=== PATIENT | male | born 1995 | race Hispanic/Latino ===

== ENCOUNTER → 2020-05-25 | Outpatient (CLI) | payer OTHER | END | disposition home or self-care (01) | LOC: RAH 08:53 | DX: R13.10 Dysphagia, unspecified (principal) | CPT/HCPCS: 74220 ==

== ENCOUNTER 2020-05-26 00:44 | Emergency (ER) | payer OTHER | END 2020-05-26 02:24 | disposition home or self-care (01) | LOC: EDH 00:44 | DX: R07.0 Pain in throat (principal) | CPT/HCPCS: 99281 ==

== ENCOUNTER 2020-11-01 22:54 | Emergency (ER) | payer OTHER ==
[2020-11-01 23:30] LABS: BASOPHILS % (AUTO) 0.4 % (0.0-5.0); EOSINOPHILS % (AUTO) 0.6 % (0.0-8.0); HEMATOCRIT 45.9 % (42-54); LYMPHOCYTES % (AUTO) 29.5 % (21.0-51.0); MEAN CORPUSCULAR HEMOGLOBIN 29.6 pg (27.0-33.0); MEAN CORPUSCULAR HGB CONC 34.2 g/dL (32.0-36.0); MEAN CORPUSCULAR VOLUME 86.6 fL (79-99); MONOCYTES % (AUTO) 3.9 % (3.0-13.0); NEUTROPHILS % (AUTO) 65.4 % (40.0-77.0); PLATELET COUNT (AUTO) 160 K/uL (130-400); RED CELL DISTRIBUTION WIDTH 12.2 % (11.0-15.5); WHITE BLOOD COUNT (AUTO) 4.8 K/uL (4.8-10.8)
[2020-11-01 23:45] LABS: POTASSIUM 3.7 mmol/L (3.5-5.1)
[2020-11-01 23:49] LABS: ALBUMIN 4.7 g/dL (3.5-5.0); BILIRUBIN,TOTAL 1.2 mg/dL (0.2-1.0); TOTAL PROTEIN, SERUM 7.7 g/dL (6.0-8.3)
== END 2020-11-02 00:43 | disposition home or self-care (01) ==
LOC: EDH 22:54
DX: K21.00 Gastro-esophageal reflux disease with esophagitis, without bleeding (principal); R63.8 Other symptoms and signs concerning food and fluid intake
CPT/HCPCS: 36415; 80053; 83690; 85025

== ENCOUNTER 2020-11-07 22:37 | Emergency (ER) | payer OTHER ==
[2020-11-07] MEDS ORDERED: LACTULOSE 20 GM/30 ML UDCUP ONE (23:35)
== END 2020-11-07 23:40 | disposition home or self-care (01) ==
LOC: EDH 22:37
DX: K59.00 Constipation, unspecified (principal); R09.89 Other specified symptoms and signs involving the circulatory and respiratory systems; K21.9 Gastro-esophageal reflux disease without esophagitis

== ENCOUNTER 2020-11-16 00:43 | Emergency (ER) | payer OTHER ==
[2020-11-16] MEDS ORDERED: FAMOTIDINE 20MG TAB 20 MG TAB ONE (01:32)
[2020-11-16] MEDS ORDERED: LIDOCAINE HCL 2% VISCOUS 15 ML UDCUP ONE (01:32)
[2020-11-16] MEDS ORDERED: MAG HYDROX/AL HYDROX/SIMETH ES 30 ML SUSP UDCUP ONE (01:32)
== END 2020-11-16 01:46 | disposition home or self-care (01) ==
LOC: EDH 00:43
DX: R13.10 Dysphagia, unspecified (principal); K21.9 Gastro-esophageal reflux disease without esophagitis; K59.00 Constipation, unspecified
CPT/HCPCS: 99282

== ENCOUNTER 2020-11-16 20:10 | Emergency (ER) | payer OTHER | END 2020-11-16 21:33 | disposition home or self-care (01) | LOC: EDH 20:10 | DX: K59.00 Constipation, unspecified (principal); K21.9 Gastro-esophageal reflux disease without esophagitis | CPT/HCPCS: 99282 ==

== ENCOUNTER 2021-09-25 17:03 | Emergency (ER) | payer OTHER ==
[~2021-09-25] VITALS: Ht 165.1 cm; Wt 49.0 kg
[~2021-09-25 17:03] MED LIST: D-ME1POW16 PO; NIRM1TAB PO
[2021-09-25 17:07] VITALS: BP 121/74
[2021-09-25] MEDS ORDERED: ACETAMINOPHEN 500 MG TABLET PO ONE (19:00)
== END 2021-09-25 18:47 | disposition home or self-care (01) ==
LOC: EDH 17:03
DX: J02.9 Acute pharyngitis, unspecified (principal)
CPT/HCPCS: 87880

== ENCOUNTER 2021-10-18 11:10 | Emergency (ER) | payer OTHER ==
[~2021-10-18] VITALS: Ht 162.6 cm; Wt 47.6 kg
[2021-10-18 11:14] VITALS: BP 121/66
[2021-10-18] MEDS: ACETAMINOPHEN 500 MG TABLET PO SCH ×2 (11:48→14:19)
[2021-10-18] MEDS ORDERED: AZIT1PAC7 PO (13:52)
[2021-10-18] MEDS ORDERED: D-ME118S47 PO (13:52)
[2021-10-18] MEDS ORDERED: IBUP-2070 PO (13:52)
[2021-10-18] MEDS ORDERED: AZITHROMYCIN 250 MG TABLET PO ONE (14:00)
== END 2021-10-18 14:22 | disposition home or self-care (01) ==
LOC: EDH 11:10
DX: J22 Unspecified acute lower respiratory infection (principal); R05.9 Cough, unspecified; Z20.828 Contact with and (suspected) exposure to other viral communicable diseases
CPT/HCPCS: 87635; 87804 ×2; 87880; 99284; C9803

== ENCOUNTER 2022-12-14 22:37 | Emergency (ER) | payer BC, OTHER ==
[~2022-12-14] VITALS: Ht 162.6 cm; Wt 50.8 kg
[~2022-12-14 22:37] MED LIST changes: +AZIT1PAC7 PO; +D-ME118S47 PO; +IBUP-2070 PO
[2022-12-14 22:47] VITALS: BP 130/60
[2022-12-14] MEDS ORDERED: PRED20TA3 PO ×2 (23:17→23:20)
[2022-12-14] MEDS ORDERED: PREDNISONE 20 MG TABLET PO ONE (23:30)
== END 2022-12-14 23:41 | disposition home or self-care (01) ==
LOC: EDH 22:37
DX: J02.8 Acute pharyngitis due to other specified organisms (principal); Z20.822 Contact with and (suspected) exposure to COVID-19
CPT/HCPCS: 99283; 87635; 87880; 87804 ×2; C9803

== ENCOUNTER 2023-06-05 13:07 | Emergency (ER) | payer BC ==
[~2023-06-05] VITALS: Ht 162.6 cm; Wt 49.9 kg
[~2023-06-05 13:07] MED LIST changes: +BROM118S48 PO; -D-ME118S47 PO; +PRED20TA3 PO
[2023-06-05 13:11] VITALS: BP 126/86; PULSE 122; RESP 16; O2SAT 97
[2023-06-05 13:35] LABS: RAPID GROUP A STREP negative (NEGATIVE)
[2023-06-05 13:40] LABS: SARS-CoV-2, RNA, NAAT POSITIVE SARS CoV-2 (NEGATIVE)
[2023-06-05 13:45] LABS: INFLUENZA TYPE A Negative For Type A (NEGATIVE); INFLUENZA TYPE B Negative For Type B (NEGATIVE)
== END 2023-06-05 15:37 | disposition home or self-care (01) ==
LOC: EDH 13:07
DX: U07.1 COVID-19 (principal); Z79.899 Other long term (current) drug therapy
CPT/HCPCS: 99283; 87635; 87880; 87804 ×2; C9803

== ENCOUNTER 2023-08-24 16:50 | Emergency (ER) | payer BC ==
[~2023-08-24] VITALS: Ht 162.6 cm; Wt 49.9 kg
[2023-08-24 17:26] VITALS: BP 138/97; PULSE 92; RESP 18; O2SAT 99
[2023-08-24 17:57] LABS: RAPID GROUP A STREP negative (NEGATIVE)
[2023-08-24 18:06] LABS: SARS-CoV-2, RNA, NAAT NEGATIVE SARS CoV-2 (NEGATIVE)
[2023-08-24 18:08] LABS: INFLUENZA TYPE A Negative For Type A (NEGATIVE); INFLUENZA TYPE B Negative For Type B (NEGATIVE)
[2023-08-24] MEDS ORDERED: BROM118S48 PO (21:29)
== END 2023-08-24 22:16 | disposition home or self-care (01) ==
LOC: EDH 16:50
DX: J06.9 Acute upper respiratory infection, unspecified (principal); Z20.822 Contact with and (suspected) exposure to COVID-19; Z79.899 Other long term (current) drug therapy
CPT/HCPCS: 87635; 87804; 87880

== ENCOUNTER 2023-09-20 20:02 | Emergency (ER) | payer BC ==
[~2023-09-20] VITALS: Ht 162.6 cm; Wt 49.0 kg
[~2023-09-20 20:02] MED LIST changes: -BROM118S48 PO; +D-ME118S47 PO
[2023-09-20 21:08] LABS: RAPID GROUP A STREP negative (NEGATIVE)
[2023-09-20 21:22] LABS: INFLUENZA TYPE A Negative For Type A (NEGATIVE); INFLUENZA TYPE B Negative For Type B (NEGATIVE)
[2023-09-20 21:30] LABS: COVID19 (SARS ANTIGEN RAPID) PRESUMPTIVE NEGATIVE (NEGATIVE)
[2023-09-20] MEDS: ACETAMINOPHEN 500 MG TABLET PO ONE (22:19)
[2023-09-20] MEDS: KETOROLAC 60 MG VIAL (30MG/ML) IM ONE ×2 (22:20→22:47)
[2023-09-20] MEDS ORDERED: ONDA4TAB10 PO (22:58)
[2023-09-20 23:06] VITALS: TEMP 99.9
[2023-09-20 23:07] VITALS: BP 138/67; PULSE 102; RESP 20; O2SAT 100
== END 2023-09-20 23:12 | disposition home or self-care (01) ==
LOC: EDH 20:02
DX: B34.9 Viral infection, unspecified (principal); J02.8 Acute pharyngitis due to other specified organisms; R11.0 Nausea; Z79.899 Other long term (current) drug therapy; Z20.822 Contact with and (suspected) exposure to COVID-19
CPT/HCPCS: 99284; 87426; 87880; 87804 ×2; 96372 ×2; J1885 ×2

== ENCOUNTER 2024-07-27 10:32 | Emergency (ER) | payer BC ==
[~2024-07-27] VITALS: Ht 162.6 cm; Wt 50.9 kg
[~2024-07-27 10:32] MED LIST changes: +BROM118S48 PO; -D-ME118S47 PO; +ONDA-243 PO
--- NOTE | 2024-07-27 10:38 | ERN ---
ED Note History of Present Illness Stated Complaint: COUGH, CONGESTION, FEVER Chief Complaint: Cough Time Seen by MD: 10:34 Dictation: PATIENT IS A 28-YEAR-OLD MALE HERE WITH COMPLAINTS OF FLU-LIKE SYMPTOMS TO INCLUDE FRONTAL HEADACHE, CLEAR RHINITIS, MILD SORE THROAT AND DRY COUGH FOR THE LAST 2-3 DAYS. NO NAUSEA VOMITING NO DIARRHEA. STATES NO LOSS OF TASTE OR SMELL. 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 BOLAÑOS IS A HOWEVER HAS NOT BEEN OUT TO SEE HIM. Allergies: Coded Allergies: No Known Allergies (Unverified Allergy, Unknown, 11/08/20) Home Meds Active Scripts Benzonatate (Tessalon Perles) 100 Mg Cap, 100 MG PO TID for cough, #30 CAP 0 Refills Prov:ROBLES CAMPOS BLOWER INSTALLER 07/27/24 Ondansetron (Ondansetron Odt) 4 Mg Tab.rapdis, 4 MG PO Q6HPRN PRN for nausea, #15 TAB 0 Refills Prov:EVELINA YU BLOWER INSTALLER 09/20/23 Prednisone (Prednisone) 20 Mg Tablet, 2 TAB PO DAILY for 5 Days, #10 TAB 0 Refills Prov:MUSA MAYBERRY SALES PROMOTION COORDINATOR 08/24/23 D-Methorphan Hb/P-Epd HCl/Bpm (Bromfed Dm Cough Syrup) 2 Mg-30 Mg-10 Mg/5 Ml Syrup, 5 ML PO Q6HPRN PRN for COUGH/COLD SYMPTOMS, #240 ML Prov:MUSA MAYBERRY SALES PROMOTION COORDINATOR 08/24/23 Prednisone (Prednisone) 20 Mg Tablet, 2 TAB PO DAILY for 5 Days, #10 TAB 0 Refills TAKE 1 TAB BY MOUTH THREE TIMES PER DAY X3 DAYS, THEN TAKE 1 TAB BY MOUTH TWICE A DAY X2 DAYS, THEN TAKE 1 TAB BY MOUTH ONCE A DAY X1 DAY. Prov:MUSA MAYBERRY SALES PROMOTION COORDINATOR 12/14/22 Azithromycin (Azithromycin) 1 Gm Packet, 1 GM PO AD for 5 Days, #1 PKT Prov:KARTHIK BALL MD 10/18/21 D-Methorphan Hb/P-Epd HCl/Bpm (Bromfed Dm Cough Syrup) 118 Ml Syrup, 10 ML PO QID, #120 ML Prov:KARTHIK BALL MD 10/18/21 Ibuprofen (Ibuprofen) 600 Mg Tablet, 600 MG PO Q6H PRN for PAIN, #30 TAB Prov:KARTHIK BALL MD 10/18/21 D-Methorphan/PE/Acetaminophen (Theraflu Ms Severe Cold Pckt) 1 Each Powd.pack, 1 EACH PO QIDP, #20 PACK Prov:WASHBURNTOBI PA 07/19/21 Nirmatrelvir/Ritonavir (Paxlovid Co-Pack (Eua)) 1 Each Tablet, 1 EACH PO BID, #10 TAB Prov:MADDISONTOBI PA 07/19/21 Past Medical History Past Medical History: No Pertinent History, Asthma Surgical History: None Family History: Negative Social History: Negative, Lives with family RN Note Reviewed/Agreed w/PFSH: Yes Review of System Dictation CONSTITUTIONAL: NEGATIVE EXCEPT FOR HPI FEVER HEAD/FACE: NEGATIVE EXCEPT FOR HPI EENT: NEGATIVE EXCEPT FOR HPI CLEAR RHINITIS WITH MILD RESPIRATORY: NEGATIVE EXCEPT FOR HPI SOR THROAT DRY COUGH GASTROINTESTINAL/ABDOMINAL: NEGATIVE EXCEPT FOR HPI GENITOURINARY: NEGATIVE EXCEPT FOR HPI MUSCULOSKELETAL: NEGATIVE EXCEPT FOR HPI INTEGUMENTARY: NEGATIVE EXCEPT FOR HPI NEUROLOGICAL/PSYCH: NEGATIVE EXCEPT FOR HPI HEMATOLOGIC/LYMPHATIC: NEGATIVE EXCEPT FOR HPI ALL SYSTEMS NEGATIVE, EXCEPT NOTED ABOVE. 13 POINT REVIEW OF SYSTEMS ASSESSED AND ALL NEGATIVE EXCEPT FOR ABOVE. Initial Vital Sign VS Vital Signs Date Time Temp Pulse Resp B/P (MAP) Pulse Ox O2 Delivery O2 Flow Rate FiO2 07/27/24 10:32 99.1 118 16 178/99 99 Room Air 0 07/27/24 12:50 21 Physical Exam Dictation VITAL SIGNS REVIEWED GENERAL APPEARANCE: ALERT, ORIENTED X 3, NO ACUTE DISTRESS, WELL DEVELOPED, NOURISHED. HEAD AND FACE: NON-TRAUMATIC. EYES: PERRL, PINK CONJUNCTIVAS, EYELID NO TRAUMA, ANTERIOR CHAMBER WITH ARCUS SENILIS. EARS: PINNAS INTACT AND NO SIGNS OF TRAUMA OR ERYTHEMA EAR CANALS CLEAR AND NO DISCHARGE TM NO ERYTHEMA NOSE: CLEAR DISCHARGE, NO BLEEDING. OROPHARYNX: MOUTH NORMAL, TONGUE PINK, PHARYNX CLEAR,NO ERYTHEMA, TONSILS NO EXUDATES, NO ABSCESSES NOTED, MUCOUS MEMBRANE MOIST NECK: SUPPLE, NON-TENDER, NO THYROMEGALY, NO MASSES, NO JVD, NO BRUITS BREAST:DEFERRED CHEST:NO TENDERNESS, NO CREPITUS, NO PARADOXICAL MOVEMENT, NO RETRACTIONS LUNGS:CLEAR, WELL-VENTILATED, SYMMETRIC, NO RALES, NO WHEEZING, NO RHONCHI, NO STRIDOR, GOOD BREATH SOUNDS BILATERALLY HEART: REGULAR RATE, REGULAR RHYTHM, NO MURMUR, NO GALLOPS VASCULAR: NO PERIPHERAL EDEMA, ABDOMEN: SOFT, POSITIVE BOWEL SOUNDS, NONDISTENDED, NO GUARDING, NONTENDER, NO REBOUND, NO MASSES NO HEPATOMEGALY, NO SPLENOMEGALY, NO VERMA'S SIGN, NO HERNIAS. RECTAL: DEFERRED GENITAL: DEFERRED NEUROLOGICAL: NORMAL SPEECH, MOTOR FUNCTION INTACT, SENSORY FUNCTION INTACT MUSCULOSKELETAL: NECK NONTENDER, FULL RANGE OF MOTION, BACK NONTENDER, FULL RANGE OF MOTION, EXTREMITIES: NONTENDER, FULL RANGE OF MOTION SKIN: COLOR PINK, DRY, NO TURGOR, NO RASH, NO LACERATIONS, NO ABRASIONS, NO CONTUSIONS. LYMPHATIC: DEFERRED Results (Laboratory/Radiology) Laboratory/Radiology Laboratory Tests Test 07/27/24 10:48 Influenza Type A Antigen Negative For Type A Influenza Type B Antigen Negative For Type B SARS-CoV-2 Antigen (Rapid) PRESUMPTIVE NEGATIVE Group A Streptococcus Rapid negative (NEGATIVE) Labs Reviewed?: Yes ED Course ED Course Orders Procedure Category Date Status Time Covid19 (Sars Antigen LAB 07/27/24 Complete Rapid) 10:36 Rapid (Group A Strep) LAB 07/27/24 Complete 10:36 Influenza Type A & B, LAB 07/27/24 Complete Rapid 10:36 Vital Signs Date Time Temp Pulse Resp B/P (MAP) Pulse Ox O2 Delivery O2 Flow Rate FiO2 07/27/24 12:50 98.8 92 16 160/84 99 Room Air* 0 21 07/27/24 10:32 99.1 118 16 178/99 99 Room Air 0 1150/PATIENT IS DISCHARGED HOME WITH VIRAL URI WITH COUGH AFEBRILE AT THIS TIME DISCHARGED AND TOLD TO SEE HIS PRIMARY CARE DOCTOR Medical Decision Making MDM MEDICAL DISCHARGE MAKING BASED ON SWABS FOR FLU COVID AND STREP. PATIENT DISCHARGED HOME WITH VIRAL URI WITH COUGH HE WILL BE PRESCRIBED TESSALON AND TOLD TO SEE HIS PRIMARY CARE DOCTOR MDM: Differential diagnosis: Viral syndrome, influenza, URI Risk of complication and/or morbidity or mortality of patient management: None Medications-Per medication reconciliation Need for hospitalization: Patient does not meet criteria for hospitalization. Need for emergency major/minor surgery: No There are no social concerns with this patient. Prescription drug management Prescriptions will include symptomatic care I independently interpreted the test that were performed, results were reviewed by me and considered findings on radiology if ordered. DX & DISP Disposition: Discharge Departure Impression: Primary Impression: Viral URI with cough Condition: Stable Scripts Benzonatate (Tessalon Perles) 100 Mg Cap 100 MG PO TID for cough, #30 CAP 0 Refills Prov: ROBLES CAMPOS BLOWER INSTALLER 07/27/24 Additional Instructions: FOLLOW-UP WITH PRIMARY CARE PROVIDER IN 1 TO 2 DAYS. TAKE MEDICATIONS DIRECTED HERE IN THE EMERGENCY ROOM. OKAY TO CONTINUE HOME MEDICATIONS UNLESS OTHERWISE DISCUSSED DURING YOUR VISIT IN THE EMERGENCY ROOM TODAY. RETURN TO YOUR NEAREST EMERGENCY ROOM IF SYMPTOMS WORSEN OR IF THERE IS NO IMPROVEMENT. CALL 911 IF YOU NEED IMMEDIATE ASSISTANCE. TAKE TYLENOL OR MOTRIN [id number] NEEDED AND IF NO CONTRAINDICATIONS ARE PRESENT. INCREASE ORAL HYDRATION. A WOUND CULTURE OR URINE CULTURE WAS ORDERED HERE IN THE EMERGENCY ROOM DEPARTMENT PLEASE FOLLOW-UP WITH PRIMARY CARE PROVIDER AND ADVISE THEM TO GET REPEAT PORTS FROM OUR FACILITY. IF YOU HAD ANY GRETEL WRAP/SPLINTS THAT WERE APPLIED HERE, PLEASE DO NOT REMOVE THEM UNTIL YOU SEE YOUR PRIMARY CARE OR SPECIALTY. TAKE TESSALON NEEDED FOR COUGH. INCREASE YOUR FLUID INTAKE. NO WORK UNTIL CLEARED BY YOUR PRIMARY CARE DOCTOR. Referrals: CHARLES NORTH MD (PCP) Time of Disposition: 11:52 I have reviewed the case, and I agree with, Diagnosis and Plan I performed the substantive portion of the visit. I have reviewed and personally made and approve the management plan that is documented in the notes by myself or the JASEN. I acknowledge full responsibility for the patient's management plan. ROBLES CAMPOS NP Jul 27, 2024 10:38 OLIMPIA FITZGERALD MD Jul 28, 2024 10:36
[2024-07-27 11:13] LABS: RAPID GROUP A STREP negative (NEGATIVE)
[2024-07-27 11:23] LABS: INFLUENZA TYPE A Negative For Type A (NEGATIVE); INFLUENZA TYPE B Negative For Type B (NEGATIVE)
[2024-07-27 11:24] LABS: COVID19 (SARS ANTIGEN RAPID) PRESUMPTIVE NEGATIVE (NEGATIVE)
[2024-07-27] MEDS ORDERED: BENZ-39 PO (11:53)
[2024-07-27 12:50] VITALS: BP 160/84; PULSE 92; RESP 16; TEMP 98.8; O2SAT 99
== END 2024-07-27 12:55 | disposition home or self-care (01) ==
LOC: EDH 10:32
DX: J06.9 Acute upper respiratory infection, unspecified (principal); B97.89 Other viral agents as the cause of diseases classified elsewhere; J45.909 Unspecified asthma, uncomplicated; Z20.822 Contact with and (suspected) exposure to COVID-19; Z79.52 Long term (current) use of systemic steroids
CPT/HCPCS: 87426; 87804; 87880; 99283

== ENCOUNTER 2025-01-07 18:55 | Emergency (ER) | payer BC ==
[~2025-01-07] VITALS: Ht 162.6 cm; Wt 50.8 kg
[~2025-01-07 18:55] MED LIST changes: +BENZ-39 PO
[2025-01-07 19:49] LABS: RAPID GROUP A STREP negative (NEGATIVE)
[2025-01-07 19:59] LABS: COVID19 (SARS ANTIGEN RAPID) PRESUMPTIVE NEGATIVE (NEGATIVE); INFLUENZA TYPE A Negative For Type A (NEGATIVE); INFLUENZA TYPE B Negative For Type B (NEGATIVE)
--- NOTE | 2025-01-07 20:21 | ERN ---
General Chief Complaint: Flu Symptoms Stated Complaint: FEVER Time Seen by MD: 18:57 Time Seen by Midlevel: 18:57 Source: patient History of Present Illness Initial Comments 29-year-old male who presents to the emergency department due to flu-like symptoms onset yesterday. Patient reports fevers, congestion but denies any chest pain, difficulty breathing, cough, headache or further associated symptoms. Has been taking Tylenol at home for fever. Patient reports a history of anxiety. Allergies: Coded Allergies: No Known Allergies (Unverified Allergy, Unknown, 11/08/20) Home Meds Active Scripts Benzonatate (Tessalon Perles) 100 Mg Cap, 100 MG PO TID for cough, #30 CAP 0 Refills Prov:ROBLES CAMPOS SWEATBAND DRUMMER 07/27/24 Ondansetron (Ondansetron Odt) 4 Mg Tab.rapdis, 4 MG PO Q6HPRN PRN for nausea, #15 TAB 0 Refills Prov:EVELINA YU SWEATBAND DRUMMER 09/20/23 Prednisone (Prednisone) 20 Mg Tablet, 2 TAB PO DAILY for 5 Days, #10 TAB 0 Refills Prov:MUSA MAYBERRY RETAIL STORE ASSOCIATE 08/24/23 D-Methorphan Hb/P-Epd HCl/Bpm (Bromfed Dm Cough Syrup) 2 Mg-30 Mg-10 Mg/5 Ml Syrup, 5 ML PO Q6HPRN PRN for COUGH/COLD SYMPTOMS, #240 ML Prov:MUSA MAYBERRY RETAIL STORE ASSOCIATE 08/24/23 Prednisone (Prednisone) 20 Mg Tablet, 2 TAB PO DAILY for 5 Days, #10 TAB 0 Refills TAKE 1 TAB BY MOUTH THREE TIMES PER DAY X3 DAYS, THEN TAKE 1 TAB BY MOUTH TWICE A DAY X2 DAYS, THEN TAKE 1 TAB BY MOUTH ONCE A DAY X1 DAY. Prov:MUSA MAYBERRY RETAIL STORE ASSOCIATE 12/14/22 Azithromycin (Azithromycin) 1 Gm Packet, 1 GM PO AD for 5 Days, #1 PKT Prov:KARTHIK BLAL MD 10/18/21 D-Methorphan Hb/P-Epd HCl/Bpm (Bromfed Dm Cough Syrup) 118 Ml Syrup, 10 ML PO Q ID, #120 ML Prov:KARTHIK BALL MD 10/18/21 Ibuprofen (Ibuprofen) 600 Mg Tablet, 600 MG PO Q6H PRN for PAIN, #30 TAB Prov:KARTHIK BALL MD 10/18/21 D-Methorphan/PE/Acetaminophen (Theraflu Ms Severe Cold Pckt) 1 Each Powd.pack, 1 EACH PO QIDP, #20 PACK Prov:TOBI WASHBURN 07/19/21 Nirmatrelvir/Ritonavir (Paxlovid Co-Pack (Eua)) 1 Each Tablet, 1 EACH PO BID, #10 TAB Prov:TOBI WASHBURN 07/19/21 Past Medical History Past Medical History: No Pertinent History Past Surgical History: None Family History Family History: Negative Social History Social History: Negative, Lives with family ROS Dictation Constitutional: Positive for fever Negative for chills, and weight loss Eyes: Negative for injury, pain,redness, and discharge ENT: Positive for congestion Negative for injury,pain or swelling Cardiovascular: Negative for chest pain, palpitations, and edema Respiratory: Negative for shortness of breath, cough, and wheezing, Abdomen/GI: Negative for abdominal pain, nausea, vomiting, diarrhea, and constipation Back: Negative for injury and pain : Negative for painful urination, bleeding or discharge MS/Extremity: Negative for injury and deformity Skin: Negative for rash, and discoloration Neuro: Negative for headache, weakness, numbness, tingling, and seizure Psych: Negative for suicide ideation, homicidal ideation, and hallucinations Physical Exam Physical Exam Dictation General: awake, alert, no acute distress Head/Face: Normocephalic, atraumatic Eyes: PERRL, EOMI, normal conjunctiva ENT: oral cavity clear, TMs clear, oral mucosa moist Neck: Supple, normal range of motion Cardiovascular: RRR, normal S1/S2 Respiratory: CTAB, no respiratory distress, no rales or wheezes Abdomen: Soft, non-tender, non-distended, no guarding or rebound. Skin: Warm, dry, normal turgor, no rash MS/Extremity: Pulses equal, no cyanosis, neurovascular intact, FROM Neuro: COAx4, GCS 15, strength 5/5, CN 2-12 intact, normal cerebellar exam, normal gait Psych: Normal behavior, mood, and affect normal Results Laboratory and Microbiology Lab and Micro Result Laboratory Tests Test 01/07/25 19:28 Influenza Type A Antigen Negative For Type A Influenza Type B Antigen Negative For Type B SARS-CoV-2 Antigen (Rapid) PRESUMPTIVE NEGATIVE Group A Streptococcus Rapid negative (NEGATIVE) Labs Reviewed?: Yes MDM MDM: Differential diagnosis: Influenza, viral illness, strep, COVID Rationale: 29-year-old male who presents to the emergency department due to flu- like symptoms onset yesterday. Patient reports fevers, congestion but denies any chest pain, difficulty breathing, cough, headache or further associated symptoms. Has been taking Tylenol at home for fever. Patient reports a history of anxiety. SARs, influenza, strep negative. Patient tachycardic bit states he gets very nervous. Continues to deny any chest pain, shortness of breath or further associated symptoms. Patient was educated on findings and diagnosis. Advised to follow up with PCP. Return to the emergency department for any worsening symptoms. Patient verbalized understanding. Patient stable for discharge. There are no social concerns with this patient. I independently interpreted the test that were performed, results were reviewed by me and considered findings on radiology if ordered. Medical management and examination interpretation discussions were had by me with other qualified healthcare professionals as indicated for the patient's care. ED Course Orders Procedure Category Date Status Time Covid19 (Sars Antigen LAB 01/07/25 Complete Rapid) 19:14 Influenza Type A & B, LAB 01/07/25 Complete Rapid 19:14 Rapid (Group A Strep) LAB 01/07/25 Complete 19:14 Vital Signs Date Time Temp Pulse Resp B/P (MAP) Pulse Ox O2 Delivery O2 Flow Rate FiO2 01/07/25 19:19 99.1 136 18 148/98 99 Room Air DX & DISP Disposition: Discharge Departure Impression: Primary Impression: Viral illness Condition: Stable Scripts Fluticasone Propionate (Flonase Nasal [place]) 50 Mcg/Actuation [place] 2 SPRAY NS DAILY for 7 Days, #16 GM 0 Refills Prov: LUTHER EVERETT 01/07/25 Additional Instructions: Discharge home. Rest. Follow up with primary care in 24 hours. Return to the ER for any acute changes or worsening symptoms. If any medications were prescribed take as directed. Okay to continue home medications unless otherwise discussed during your visit in the emergency room today. Patient was also advised to follow-up with primary care physician in 1 to 2 days for continued monitoring. Referrals: CHARLES NORTH MD (PCP) I performed the substantive portion of the visit. I have reviewed and personally made and approve the management plan that is documented in the notes by myself or the JASEN. I acknowledge full responsibility for the patient's management plan. LUTHER EVERETT Jan 07, 2025 20:21
[2025-01-07 20:26] VITALS: BP 149/94; PULSE 105; RESP 18; TEMP 98.7; O2SAT 98
[2025-01-07] MEDS ORDERED: FLUT16H NS (20:36)
== END 2025-01-07 20:37 | disposition home or self-care (01) ==
LOC: EDH 18:55
DX: B34.9 Viral infection, unspecified (principal); Z79.52 Long term (current) use of systemic steroids; Z79.899 Other long term (current) drug therapy; Z20.822 Contact with and (suspected) exposure to COVID-19
CPT/HCPCS: 87426; 87804; 87880; 99283

== ENCOUNTER 2025-02-01 23:24 | Emergency (ER) | payer BC ==
[~2025-02-01] VITALS: Ht 162.6 cm; Wt 49.9 kg
[~2025-02-01 23:24] MED LIST changes: +FLUT16H NS; +IBUP-1492 PO; -IBUP-2070 PO
--- NOTE | 2025-02-01 23:47 | ERN ---
ED Note History of Present Illness Stated Complaint: C/O WANTS TO BE SURE O2 LEVEL IS GOOD Chief Complaint: Other Problems Time Seen by MD: 23:34 Time Seen by Midlevel: 23:34 Dictation: The patient is a 29-year-old male with no past medical history who presents to the emergency department for evaluation of oxygen level. Patient reports that he was at his work and was afraid that he accidentally drank something that he was allergic to although he was not sure. Patient otherwise denies any shortness of breath, denies any rash or itchiness. Patient reports he just wanted to make sure his oxygen saturation was okay. Allergies: Coded Allergies: No Known Allergies (Unverified Allergy, Unknown, 11/08/20) Home Meds Active Scripts Fluticasone Propionate (Flonase Nasal [place]) 50 Mcg/Actuation [place], 2 SPRAY NS DAILY for 7 Days, #16 GM 0 Refills Prov:LUTHER EVERETT PA 01/07/25 Benzonatate (Tessalon Perles) 100 Mg Cap, 100 MG PO TID for cough, #30 CAP 0 Refills Prov:ROBLES CAMPOS SOFTWARE TESTING SPECIALIST 07/27/24 Ondansetron (Ondansetron Odt) 4 Mg Tab.rapdis, 4 MG PO Q6HPRN PRN for nausea, #15 TAB 0 Refills Prov:EVELINA YU SOFTWARE TESTING SPECIALIST 09/20/23 Prednisone (Prednisone) 20 Mg Tablet, 2 TAB PO DAILY for 5 Days, #10 TAB 0 Refills Prov:MUSA MAYBERRY BODY DESIGNER 08/24/23 D-Methorphan Hb/P-Epd HCl/Bpm (Bromfed Dm Cough Syrup) 2 Mg-30 Mg-10 Mg/5 Ml Syrup, 5 ML PO Q6HPRN PRN for COUGH/COLD SYMPTOMS, #240 ML Prov:MUSA MAYBERRY BODY DESIGNER 08/24/23 Prednisone (Prednisone) 20 Mg Tablet, 2 TAB PO DAILY for 5 Days, #10 TAB 0 Ref ills TAKE 1 TAB BY MOUTH THREE TIMES PER DAY X3 DAYS, THEN TAKE 1 TAB BY MOUTH TWICE A DAY X2 DAYS, THEN TAKE 1 TAB BY MOUTH ONCE A DAY X1 DAY. Prov:MUSA MAYBERRY BODY DESIGNER 12/14/22 Azithromycin (Azithromycin) 1 Gm Packet, 1 GM PO AD for 5 Days, #1 PKT Prov:KARTHIK BALL MD 10/18/21 D-Methorphan Hb/P-Epd HCl/Bpm (Bromfed Dm Cough Syrup) 118 Ml Syrup, 10 ML PO QID, #120 ML Prov:KARTHIK BALL MD 10/18/21 Ibuprofen (Ibuprofen) 600 Mg Tablet, 600 MG PO Q6H PRN for PAIN, #30 TAB Prov:KARTHIK BALL MD 10/18/21 D-Methorphan/PE/Acetaminophen (Theraflu Ms Severe Cold Pckt) 1 Each Powd.pack, 1 EACH PO QIDP, #20 PACK Prov:TOBI WASHBURN 07/19/21 Nirmatrelvir/Ritonavir (Paxlovid Co-Pack (Eua)) 1 Each Tablet, 1 EACH PO BID, #10 TAB Prov:TOBI WASHBURN 07/19/21 Past Medical History Past Medical History: No Pertinent History Surgical History: None Family History: Negative Social History: Negative, Lives with family RN Note Reviewed/Agreed w/PFSH: Yes Review of System Dictation Constitutional: Negative for fever,chills, and weight loss Eyes: Negative for injury, pain,redness, and discharge ENT: Negative for injury,pain or swelling Cardiovascular: Negative for chest pain, palpitations, and edema Respiratory: Negative for shortness of breath, cough, and wheezing, Abdomen/GI: Negative for abdominal pain, nausea, vomiting, diarrhea, and constipation Back: Negative for injury and pain : Negative for injury, bleeding and discharge MS/Extremity: Negative for injury and deformity Skin: Negative for rash, and discoloration Neuro: Negative for headache, weakness, numbness, tingling, and seizure Psych: Negative for suicide ideation, homicidal ideation, and hallucinations Initial Vital Sign VS Vital Signs Date Time Temp Pulse Resp B/P (MAP) Pulse Ox O2 Delivery O2 Flow Rate FiO2 02/01/25 23:25 97.9 89 18 146/82 99 Room Air 02/01/25 23:38 0 21 Physical Exam Dictation Vital Signs reviewed General Appearance: Alert, oriented x 3, no acute distress, well developed, nourished. Head and Face: non-traumatic. Eyes: PERRL, pink conjunctivas, eyelid no trauma, anterior chamber with arcus senilis. Ears: Pinnas intact and no signs of trauma or erythema ear canals clear and no discharge TM no erythema Nose: No discharge, no bleeding. Oropharynx: Mouth normal, tongue pink. pharynx clear,no erythema, tonsils no exudates, no abscesses noted, mucous membrane moist Neck: Supple, non-tender, no thyromegaly, no masses, no JVD, no bruits Breast:Deferred Chest:No tenderness, no crepitus, no paradoxical movement, no retractions Lungs:Clear, well-ventilated, symmetric, no rales, no wheezing, no rhonchi, no stridor, good breath sounds bilaterally Heart: Regular rate, regular rhythm, no murmur, no gallops Vascular: no peripheral edema, Abdomen: Soft, positive bowel sounds, nondistended, no guarding, nontender, no rebound, no masses no hepatomegaly, no splenomegaly, no De Leon's sign, no hernias. Rectal: Deferred Genital: Deferred Neurological: Normal speech, motor function intact, sensory function intact Musculoskeletal: Neck nontender, full range of motion, back nontender, full range of motion, Extremities: nontender, full range of motion Skin: Color pink, dry, no turgor, no rash, no lacerations, no abrasions, no contusions. Lymphatic: Deferred Results (Laboratory/Radiology) Labs Reviewed?: Yes ED Course ED Course Vital Signs Date Time Temp Pulse Resp B/P (MAP) Pulse Ox O2 Delivery O2 Flow Rate FiO2 02/01/25 23:38 97.9 85 18 141/78 99 Room Air* 0 21 02/01/25 23:25 97.9 89 18 146/82 99 Room Air Medical Decision Making MDM The patient is a 29-year-old male with no past medical history who presents to the emergency department for evaluation of oxygen level. Patient reports that he was at his work and was afraid that he accidentally drank something that he was allergic to although he was not sure. Patient otherwise denies any shortness of breath, denies any rash or itchiness. Patient reports he just wanted to make sure his oxygen saturation was okay. Patient in no acute distress, clear lung sounds, no rash or swelling to tongue, stable vital signs. Patient isn't sure if he came in contact with something that he was allergic to but otherwise has no symptoms. Patient will be discharged to follow up with PCP. Differential diagnosis: Allergic reaction, anxiety, wellness exam Need for hospitalization: Patient does not meet criteria for hospitalization. There are no social concerns with this patient. DX & DISP Disposition: Discharge Departure Impression: Primary Impression: Wellness examination Condition: Stable Additional Instructions: Please follow up with your primary doctor in 1-2 days. If anything worsens please return to ER. FOLLOW-UP WITH PRIMARY CARE PROVIDER IN 1 TO 2 DAYS. TAKE MEDICATIONS D IRECTED HERE IN THE EMERGENCY ROOM. OKAY TO CONTINUE HOME MEDICATIONS UNLESS OTHERWISE DISCUSSED DURING YOUR VISIT IN THE EMERGENCY ROOM TODAY. RETURN TO YOUR NEAREST EMERGENCY ROOM IF SYMPTOMS WORSEN OR IF THERE IS NO IMPROVEMENT. CALL 911 IF YOU NEED IMMEDIATE ASSISTANCE. TAKE TYLENOL [id number] NEEDED AND IF NO CONTRAINDICATIONS ARE PRESENT. INCREASE ORAL HYDRATION. A WOUND CULTURE OR URINE CULTURE WAS ORDERED HERE IN THE EMERGENCY ROOM DEPARTMENT PLEASE FOLLOW-UP WITH PRIMARY CARE PROVIDER AND ADVISE THEM TO GET REPEAT PORTS FROM OUR FACILITY. IF YOU HAD ANY GRETEL WRAP/SPLINTS THAT WERE APPLIED HERE, PLEASE DO NOT REMOVE THEM UNTIL YOU SEE YOUR PRIMARY CARE OR SPECIALTY. Referrals: CHARLES NORTH MD (PCP) Time of Disposition: 23:46 I have reviewed the case, and I agree with, Diagnosis and Plan CELIA SOLOMONP Feb 01, 2025 23:47
[2025-02-02 00:14] VITALS: BP 135/71; PULSE 78; RESP 18; TEMP 97.5; O2SAT 99
== END 2025-02-02 00:15 | disposition home or self-care (01) ==
LOC: EDH 23:24
DX: Z00.00 Encounter for general adult medical examination without abnormal findings (principal); Z79.52 Long term (current) use of systemic steroids
CPT/HCPCS: 99282

== ENCOUNTER 2025-03-12 23:12 | Emergency (ER) | payer BC ==
[~2025-03-12] VITALS: Ht 154.9 cm; Wt 49.0 kg
--- NOTE | 2025-03-13 00:14 | ERN ---
ED Note History of Present Illness Stated Complaint: BUG OR DUST IN RT EAR Chief Complaint: Foreignbody Ear Time Seen by MD: 23:30 Dictation: PATIENT IS HERE WITH COMPLAINTS OF A FOREIGN BODY THAT FLEW INTO HIS RIGHT EAR 2 HOURS PRIOR TO ARRIVAL. NO HEARING LOSS NO PAIN. Allergies: Coded Allergies: No Known Allergies (Unverified Allergy, Unknown, 11/08/20) Home Meds Active Scripts Fluticasone Propionate (Flonase Nasal [place]) 50 Mcg/Actuation [place], 2 SPRAY NS DAILY for 7 Days, #16 GM 0 Refills Prov:LUTHER EVERETT PA 01/07/25 Benzonatate (Tessalon Perles) 100 Mg Cap, 100 MG PO TID for cough, #30 CAP 0 Refills Prov:ROBLES CAMPOS COSMETOLOGY TEACHER 07/27/24 Ondansetron (Ondansetron Odt) 4 Mg Tab.rapdis, 4 MG PO Q6HPRN PRN for nausea, #15 TAB 0 Refills Prov:EVELINA YU NP 09/20/23 Prednisone (Prednisone) 20 Mg Tablet, 2 TAB PO DAILY for 5 Days, #10 TAB 0 Refills Prov:MUSA MAYBERRY [employer] WORKER 08/24/23 D-Methorphan Hb/P-Epd HCl/Bpm (Bromfed Dm Cough Syrup) 2 Mg-30 Mg-10 Mg/5 Ml Syrup, 5 ML PO Q6HPRN PRN for COUGH/COLD SYMPTOMS, #240 ML Prov:REGGIE MAYBERRYLUPE ASBESTOS WORKER 08/24/23 Prednisone (Prednisone) 20 Mg Tablet, 2 TAB PO DAILY for 5 Days, #10 TAB 0 Refills TAKE 1 TAB BY MOUTH THREE TIMES PER DAY X3 DAYS, THEN TAKE 1 TAB BY MOUTH TWICE A DAY X2 DAYS, THEN TAKE 1 TAB BY MOUTH ONCE A DAY X1 DAY. Prov:MUSA MAYBERRY [employer] WORKER 12/14/22 Azithromycin (Azithromycin) 1 Gm Packet, 1 GM PO AD for 5 Days, #1 PKT Prov:KARTHIK BALL MD 10/18/21 D-Methorphan Hb/P-Epd HCl/Bpm (Bromfed Dm Cough Syrup) 118 Ml Syrup, 10 ML PO QID, #120 ML Prov:KARTHIK BALL MD 4/20/22 Ibuprofen (Ibuprofen) 600 Mg Tablet, 600 MG PO Q6H PRN for PAIN, #30 TAB Prov:KARTHIK BALL MD 10/18/21 D-Methorphan/PE/Acetaminophen (Theraflu Ms Severe Cold Pckt) 1 Each Powd.pack, 1 EACH PO QIDP, #20 PACK Prov:TOBI WASHBURN 07/19/21 Nirmatrelvir/Ritonavir (Paxlovid Co-Pack (Eua)) 1 Each Tablet, 1 EACH PO BID, #10 TAB Prov:TOBI WASHBURN 07/19/21 Past Medical History Past Medical History: No Pertinent History Surgical History: None Family History: Negative Social History: Negative, Lives with family RN Note Reviewed/Agreed w/PFSH: Yes Review of System Dictation CONSTITUTIONAL: NEGATIVE EXCEPT FOR HPI HEAD/FACE: NEGATIVE EXCEPT FOR HPI EENT: NEGATIVE EXCEPT FOR HPI FOREIGN BODY RIGHT EAR RESPIRATORY: NEGATIVE EXCEPT FOR HPI GASTROINTESTINAL/ABDOMINAL: NEGATIVE EXCEPT FOR HPI GENITOURINARY: NEGATIVE EXCEPT FOR HPI MUSCULOSKELETAL: NEGATIVE EXCEPT FOR HPI INTEGUMENTARY: NEGATIVE EXCEPT FOR HPI NEUROLOGICAL/PSYCH: NEGATIVE EXCEPT FOR HPI HEMATOLOGIC/LYMPHATIC: NEGATIVE EXCEPT FOR HPI ALL SYSTEMS NEGATIVE, EXCEPT NOTED ABOVE. 13 POINT REVIEW OF SYSTEMS ASSESSED AND ALL NEGATIVE EXCEPT FOR ABOVE. Initial Vital Sign VS Vital Signs Date Time Temp Pulse Resp B/P (MAP) Pulse Ox O2 Delivery O2 Flow Rate FiO2 03/12/25 23:13 98.6 118 20 153/92 100 Room Air Physical Exam Dictation VITAL SIGNS REVIEWED GENERAL APPEARANCE: ALERT, ORIENTED X 3, NO ACUTE DISTRESS, WELL DEVELOPED, NOURISHED. HEAD AND FACE: NON-TRAUMATIC. EYES: PERRL, PINK CONJUNCTIVAS, EYELID NO TRAUMA, ANTERIOR CHAMBER WITH ARCUS SENILIS. EARS: PINNAS INTACT AND NO SIGNS OF TRAUMA OR ERYTHEMA EAR CANALS CLEAR AND NO DISCHARGE TM NO ERYTHEMA NO FOREIGN BODY TO EITHER EAR NO MASTOID TENDERNESS THERE WAS NO DISCHARGE NO SWELLING TMS ARE INTACT NOSE: NO DISCHARGE, NO BLEEDING. OROPHARYNX: MOUTH NORMAL, TONGUE PINK, PHARYNX CLEAR,NO ERYTHEMA, TONSILS NO EXUDATES, NO ABSCESSES NOTED, MUCOUS MEMBRANE MOIST NECK: SUPPLE, NON-TENDER, NO THYROMEGALY, NO MASSES, NO JVD, NO BRUITS BREAST:DEFERRED CHEST:NO TENDERNESS, NO CREPITUS, NO PARADOXICAL MOVEMENT, NO RETRACTIONS LUNGS:CLEAR, WELL-VENTILATED, SYMMETRIC, NO RALES, NO WHEEZING, NO RHONCHI, NO STRIDOR, GOOD BREATH SOUNDS BILATERALLY HEART: REGULAR RATE, REGULAR RHYTHM, NO MURMUR, NO GALLOPS VASCULAR: NO PERIPHERAL EDEMA, ABDOMEN: SOFT, POSITIVE BOWEL SOUNDS, NONDISTENDED, NO GUARDING, NONTENDER, NO REBOUND, NO MASSES NO HEPATOMEGALY, NO SPLENOMEGALY, NO VERMA'S SIGN, NO HERNIAS. RECTAL: DEFERRED GENITAL: DEFERRED NEUROLOGICAL: NORMAL SPEECH, MOTOR FUNCTION INTACT, SENSORY FUNCTION INTACT MUSCULOSKELETAL: NECK NONTENDER, FULL RANGE OF MOTION, BACK NONTENDER, FULL RANGE OF MOTION, EXTREMITIES: NONTENDER, FULL RANGE OF MOTION SKIN: COLOR PINK, DRY, NO TURGOR, NO RASH, NO LACERATIONS, NO ABRASIONS, NO CONTUSIONS. LYMPHATIC: DEFERRED Results (Laboratory/Radiology) Labs Reviewed?: Yes ED Course ED Course Vital Signs Date Time Temp Pulse Resp B/P (MAP) Pulse Ox O2 Delivery O2 Flow Rate FiO2 03/12/25 23:13 98.6 118 20 153/92 100 Room Air Medical Decision Making MDM MEDICAL DECISION-MAKING BASED ON ASSESSMENT OF BOTH EARS. THERE WAS NO FOREIGN BODY IN EITHER EAR NO MASTOID TENDERNESS NO INFECTIOUS PROCESS DX & DISP Disposition: Discharge Departure Impression: Primary Impression: Foreign body sensation in right ear canal Condition: Stable Additional Instructions: FOLLOW-UP WITH PRIMARY CARE PROVIDER IN 1 TO 2 DAYS. TAKE MEDICATIONS DIRECTED HERE IN THE EMERGENCY ROOM. OKAY TO CONTINUE HOME MEDICATIONS UNLESS OTHERWISE DISCUSSED DURING YOUR VISIT IN THE EMERGENCY ROOM TODAY. RETURN TO YOUR NEAREST EMERGENCY ROOM IF SYMPTOMS WORSEN OR IF THERE IS NO IMPROVEMENT. CALL 911 IF YOU NEED IMMEDIATE ASSISTANCE. TAKE TYLENOL OR MOTRIN [id number] NEEDED AND IF NO CONTRAINDICATIONS ARE PRESENT. INCREASE ORAL HYDRATION. A WOUND CULTURE OR URINE CULTURE WAS ORDERED HERE IN THE EMERGENCY ROOM DEPARTMENT PLEASE FOLLOW-UP WITH PRIMARY CARE PROVIDER AND ADVISE THEM TO GET REPEAT PORTS FROM OUR FACILITY. IF YOU HAD ANY GRETEL WRAP/SPLINTS THAT WERE APPLIED HERE, PLEASE DO NOT REMOVE THEM UNTIL YOU SEE YOUR PRIMARY CARE OR SPECIALTY. SEE YOUR PRIMARY CARE DOCTOR FOR FOLLOW UP. Referrals: CHARLES NORTH MD (PCP) Time of Disposition: 00:14 I have reviewed the case, and I agree with, Diagnosis and Plan ROBLES CAMPOS NP Mar 13, 2025 00:14
[2025-03-13 00:17] VITALS: BP 147/87; PULSE 98; RESP 18; TEMP 98.5; O2SAT 99
== END 2025-03-13 00:23 | disposition home or self-care (01) ==
LOC: EDH 23:12
DX: R09.A9 Foreign body sensation, other site (principal); Z79.52 Long term (current) use of systemic steroids; Z79.899 Other long term (current) drug therapy
CPT/HCPCS: 99282

== ENCOUNTER 2025-05-20 21:59 | Emergency (ER) | payer BC ==
[~2025-05-20] VITALS: Ht 162.6 cm; Wt 49.0 kg
--- NOTE | 2025-05-20 22:22 | ERN ---
General Chief Complaint: Sore Throat Stated Complaint: C/O SORE THROAT, FEVER Time Seen by MD: 22:02 History of Present Illness Initial Comments 29-year-old healthy male with a sore throat and mild fever. He does have a runny nose and his cough is nonproductive. He wants to make sure he does not have COVID or strep throat. Allergies: Coded Allergies: No Known Allergies (Unverified Allergy, Unknown, 11/08/20) Home Meds Active Scripts Fluticasone Propionate (Flonase Nasal [place]) 50 Mcg/Actuation [place], 2 SPRAY NS DAILY for 7 Days, #16 GM 0 Refills Prov:LUTHER EVERETT PAC 01/07/25 Benzonatate (Tessalon Perles) 100 Mg Cap, 100 MG PO TID for cough, #30 CAP 0 Refills Prov:ROBLES CAMPOS AWS DEVELOPER 07/27/24 Ondansetron (Ondansetron Odt) 4 Mg Tab.rapdis, 4 MG PO Q6HPRN PRN for nausea, #15 TAB 0 Refills Prov:EVELINA YU AWS DEVELOPER 09/20/23 Prednisone (Prednisone) 20 Mg Tablet, 2 TAB PO DAILY for 5 Days, #10 TAB 0 Refills Prov:MUSA MAYBERRY [facility] 08/24/23 D-Methorphan Hb/P-Epd HCl/Bpm (Bromfed Dm Cough Syrup) 2 Mg-30 Mg-10 Mg/5 Ml Syrup, 5 ML PO Q6HPRN PRN for COUGH/COLD SYMPTOMS, #240 ML Prov:MUSA MAYBERRY [facility] 08/24/23 Prednisone (Prednisone) 20 Mg Tablet, 2 TAB PO DAILY for 5 Days, #10 TAB 0 Refills TAKE 1 TAB BY MOUTH THREE TIMES PER DAY X3 DAYS, THEN TAKE 1 TAB BY MOUTH TWICE A DAY X2 DAYS, THEN TAKE 1 TAB BY MOUTH ONCE A DAY X1 DAY. Prov:MUSA MAYBERRY AWS DEVELOPER 12/14/22 Azithromycin (Azithromycin) 1 Gm Packet, 1 GM PO AD for 5 Days, #1 PKT Prov:KARTHIK BALL MD 10/18/21 D-Methorphan Hb/P-Epd HCl/Bpm (Bromfed Dm Cough Syrup) 118 Ml Syrup, 10 ML PO QID, #120 ML Prov:KARTHIK BALL MD 10/18/21 Ibuprofen (Ibuprofen) 600 Mg Tablet, 600 MG PO Q6H PRN for PAIN, #30 TAB Prov:KARTHIK BALL MD 10/18/21 D-Methorphan/PE/Acetaminophen (Theraflu Ms Severe Cold Pckt) 1 Each Powd.pack, 1 EACH PO QIDP, #20 PACK Prov:TOBI WASHBURN 07/19/21 Nirmatrelvir/Ritonavir (Paxlovid Co-Pack (Eua)) 1 Each Tablet, 1 EACH PO BID, #10 TAB Prov:TOBI WASHBURN 07/19/21 Past Medical History Past Medical History: Asthma Past Surgical History: None Family History Family History: Negative Social History Social History: Negative, Lives with family Constitutional: (+) fever EENTM: (-) eye pain, (-) blurred vision, (-) tearing, (-) double vision, (-) ea r pain, (-) ear discharge, (-) nose pain, (-) nose congestion, (-) throat pain, (-) Throat swelling, (-) mouth pain, (-) tooth pain, (-) mouth swelling, (-) other documentation Respiratory: (+) cough Cardiovascular: (-) chest pain, (-) edema, (-) palpitations, (-) syncope, (-) dyspnea on exertion, (-) other documentation Gastrointestinal/Abdominal: (-) nausea, (-) vomiting, (-) diarrhea, (-) abdominal pain, (-) abdominal distention, (-) constipation, (-) rectal bleeding, (-) dark stool/melena, (-) other documentation Genitourinary: (-) penile discharge, (-) dysuria, (-) frequency, (-) hematuria, (-) pain, (-) other documentation Musculoskeletal: (-) Neck pain, (-) back pain, (-) Flank Pain, (-) joint pain, (-) joint swelling, (-) muscle pain, (-) muscle stiffness, (-) gout, (-) other documentation Skin: (-) laceration, (-) contusion, (-) abrasion, (-) abscess, (-) rash, (-) change in color, (-) change in hair, (-) change in nails, (-) diaphoresis, (-) dryness, (-) other documentation Neuro: (-) altered mental status, (-) headache, (-) syncope, (-) paralysis, (-) numbness, (-) seizure, (-) pre-existing deficit, (-) tremors, (-) weakness, (-) dizziness, (-) slurred speech, (-) vertigo, (-) other documentation Physical Exam General Appearance: (+) no apparent distress Orientation: (+) alert, (+) oriented x 3 Head/Face Trauma: No Eye: bilateral eye normal inspection, bilateral eye PERRL, bilateral eye EOMI Ear, Nose, Throat: (+) hearing grossly normal, (+) normal ENT inspection, (+) moist mucous membraine Neck: (+) normal inspection, (+) supple, (+) full range of motion Respiratory: (+) chest non-tender, (+) lungs clear, (+) well ventilated Heart: (+) regular, (+) no gallop Vascular: (+) no edema, (+) normal peripheral pulse, (+) no JVD Gastrointestinal: (+) soft, (+) non-tender Results Laboratory and Microbiology Lab and Micro Result Laboratory Tests Test 05/20/25 22:11 Influenza Type A Antigen Negative For Type A Influenza Type B Antigen Negative For Type B SARS-CoV-2, RNA, NAAT NEGATIVE SARS CoV-2 Group A Streptococcus Rapid negative (NEGATIVE) MDM Upper respiratory tract infection. Patient is slightly tachycardic I will give him some fluids as well as than usual throat swabs. Patient's respiratory swabs are negative for COVID strep throat or influenza. I will discharge the patient ED Course Orders Procedure Category Date Status Time Covid Rna Naat LAB 05/20/25 Complete 22:08 Influenza Type A & B, LAB 05/20/25 Complete Rapid 22:08 Rapid (Group A Strep) LAB 05/20/25 Complete 22:08 Lactated Ringers PHA 05/20/25 Complete 1000ml (Lactated 22:22 Acetaminophen 500mg PHA 05/20/25 Complete Tab (Tylenol 500mg T 22:30 Current Medications Medications (Trade) Dose Ordered Sig/Heidi Route PRN Reason Start Time Stop Time Status Last Admin Dose Admin Acetaminophen (TYLenol 500MG TAB) 1,000 mg ONCE ONCE PO 05/20/25 22:30 05/20/25 22:35 DC 05/20/25 22:37 Lactated Ringer's (Lactated Ringers 1000ml) 1,000 ml BOLUS STAT IV 05/20/25 22:22 05/20/25 22:35 DC Vital Signs Date Time Temp Pulse Resp B/P (MAP) Pulse Ox O2 Delivery O2 Flow Rate FiO2 05/20/25 22:37 101.7 05/20/25 22:19 101.7 133 20 138/68 97 Room Air* 0 21 05/20/25 22:00 99.9 127 18 150/93 99 Room Air DX & DISP Disposition: Discharge Departure Impression: Primary Impression: Viral pharyngitis Condition: Stable Additional Instructions: You have an upper respiratory tract infection. Our tests show it is not COVID or strep or flu. [id number] medications can be used to help control your symptoms. For sinus pain Sudafed is a good medication. NyQuil can help with your cough and sore throat. Tylenol can help with your fever. Gargling with warm salt water can also make your throat feel better. Plenty of fluids it will help your lungs stay moist and clear the virus. Drink enough fluids so that your urine runs clear once a day. Please follow-up with your primary care physician if your symptoms do not get better in the next several days. Referrals: CHARLES NORTH MD (PCP) DELANEY OSORIO MD May 20, 2025 22:22
[2025-05-20 22:27] LABS: RAPID GROUP A STREP negative (NEGATIVE)
[2025-05-20 22:33] LABS: SARS-CoV-2, RNA, NAAT NEGATIVE SARS CoV-2 (NEGATIVE)
[2025-05-20 22:37] VITALS: TEMP 101.6
[2025-05-20 22:38] LABS: INFLUENZA TYPE A Negative For Type A (NEGATIVE); INFLUENZA TYPE B Negative For Type B (NEGATIVE)
[2025-05-20] MEDS: LACTATED RINGERS 1000ML IV STA (22:55)
[2025-05-20 23:01] VITALS: BP 127/64; PULSE 110; RESP 20; TEMP 100.4; O2SAT 97
== END 2025-05-20 23:04 | disposition home or self-care (01) ==
LOC: EDH 21:59
DX: J02.8 Acute pharyngitis due to other specified organisms (principal); B97.89 Other viral agents as the cause of diseases classified elsewhere; J45.909 Unspecified asthma, uncomplicated; Z20.822 Contact with and (suspected) exposure to COVID-19; Z79.52 Long term (current) use of systemic steroids
CPT/HCPCS: 87635; 87804; 87880; 99283